=== PATIENT | female | born 1985 | race African-American/Black ===

== ENCOUNTER 2019-11-09 06:02 | Inpatient (IN) ==
[2019-11-09] MEDS ORDERED: ONDANSETRON 4 MG/2 ML VIAL IV PRN (06:14)
[2019-11-09] MEDS ORDERED: BUTORPHANOL 2 MG/ML VIAL IV PRN (06:14)
[2019-11-09] MEDS ORDERED: MEPERIDINE 50 MG/1 ML VIAL IV PRN (06:14)
[2019-11-09] MEDS ORDERED: AMPICILLIN INJ 2,000 MG in SODIUM CHLORIDE 0.9% 100 ML IV ONE (06:15)
[2019-11-09] MEDS ORDERED: INFLUENZA VIRUS VACCINE 0.5 ML SYRINGE IM ONE (06:19)
[2019-11-09] MEDS ORDERED: LACTATED RINGERS 1,000 ML IV SCH (06:30)
[2019-11-09] MEDS ORDERED: OXYTOCIN/LR 20 UNIT/1,000 ML BAG IV SCH (06:30)
[2019-11-09 06:52] LABS: Basophils % 0.4 % (0.0-0.8); Eosinophils # 0.1 10*3/uL (0.0-0.87); Eosinophils % 1.6 % (0.00-10.9); Hematocrit 37.1 VOL% (35.7-47.0); Hemoglobin 12.1 GM/DL (12.0-16.0); Immature Granulocytes % 0.3 %; Immature Granulocytes Absolute 0.02 #; Lymphocytes # 2.4 10*3/uL (1.4-4.0); Lymphocytes % 33.2 % (21.3-54.2); Mean Corpuscular HGB Conc 32.6 GM/DL (32-36); Mean Corpuscular Volume 88.8 FL (87-102); Mean Platelet Volume 8.9 FL (9.6-12.0); Monocytes % 8.2 % (1.7-12.7); Neutrophils % 56.3 % (38.7-73.9); Platelet Count 270 T/CUMM (130-400); Red Blood Count 4.18 MC/CUMM (3.8-5.5); Red Cell Distribution Width 15.5 % (9.3-17.3); White Blood Count 7.3 T/CUMM (4-12)
[2019-11-09 06:57] LABS: Albumin 2.7 G/DL (3.4-5.0); Bilirubin,Total 0.5 MG/DL (0.2-1.0); Calcium 9.6 MG/DL (8.5-10.1); Osmolality,Calculated 268.8 MOS/KG (273-304); Total Protein 6.8 G/DL (6.4-8.3)
[2019-11-09] MEDS ORDERED: hydrOXYzine HCL 25 MG/1 ML VIAL IM PRN (07:21)
[2019-11-09] MEDS ORDERED: PROMETHAZINE 25 MG/1 ML VIAL IM ONE (07:21)
[2019-11-09] MEDS ORDERED: diphenhydrAMINE 50 MG/1 ML VIAL IV PRN ×2 (07:21)
[2019-11-09] MEDS ORDERED: FAMOTIDINE 20 MG/2 ML VIAL IV ONE (07:21)
[2019-11-09] MEDS ORDERED: ONDANSETRON 4 MG/2 ML VIAL IV ONE (07:21)
[2019-11-09] MEDS ORDERED: ePHEDrine 50 MG/ML AMP IV PRN (07:21)
[2019-11-09] MEDS ORDERED: CITRIC ACID/SODIUM CITRATE 30 ML UDCUP PO ONE (07:21)
[2019-11-09] MEDS ORDERED: NALOXONE 0.4 MG/ML VIAL IV PRN (07:21)
[2019-11-09] MEDS ORDERED: LACTATED RINGERS 1,000 ML IV ONE (07:21)
[2019-11-09] MEDS ORDERED: fentaNYL 2 MCG/ROPIV 0.2% EPID 100 ML EPIDURAL SCH (07:30)
[2019-11-09 09:40] LABS: Apearance,Urine CLEAR (Clear); Bacteria,Urine Occasional /HPF (Few); Bilirubin,Urine Negative (Negative); Blood, Urine Negative (Negative); Glucose,Urine (UA) Negative (Negative); Ketones,Urine Negative (Negative); Mucus,Urine Occasional /LPF (Occasional); Nitrite,Urine Negative (Negative); Protein,Urine Negative; RBC,Urine 3 /HPF (0-4); Squamous Epithelial Cell,Urine Occasional /HPF (0-10); Urine Color Straw (Yellow); Urine Specific Gravity 1.006 (1.001-1.035); Urine Urobilinogen < 2.0 EU/DL (0.2-1.0); WBC,Urine 1 /HPF (0-6)
[2019-11-09] MEDS ORDERED: OXYTOCIN/LR 20 UNIT/1,000 ML BAG IV ONE ×2 (10:26→15:15)
[2019-11-09] MEDS ORDERED: TRANEXAMIC ACID 1,000 MG/10 ML VIAL ONE (10:26)
[2019-11-09] MEDS ORDERED: miSOPROStoL 200 MCG TABLET ONE (10:26)
[2019-11-09] MEDS ORDERED: METHYLERGONOVINE 0.2 MG/1 ML AMP ONE (10:27)
[2019-11-09] MEDS ORDERED: CARBOPROST TROMETHAMINE 250 MCG/ML AMP IM ONE (10:27)
[2019-11-09] MEDS ORDERED: AMPICILLIN INJ 1,000 MG in SODIUM CHLORIDE 0.9% 100 ML IV SCH (10:30)
[2019-11-09] MEDS ORDERED: RHO(D) IMMUNE GLOBULIN 300 MCG SYRINGE IM ONE (15:15)
[2019-11-09] MEDS ORDERED: oxyCODONE/ACETAMINOPHEN 5-325 MG TABLET PO PRN (15:15)
[2019-11-09] MEDS ORDERED: MEASLES/MUMPS/RUBELLA VACCINE 0.5 ML VIAL SUBCUT ONE (15:15)
[2019-11-09] MEDS ORDERED: BENZOCAINE 20%/MENTHOL 0.5% SPRAY 56 GM CAN TOP PRN (15:15)
[2019-11-09] MEDS ORDERED: DIPH/TET/ACEL PERT BOOSTER VACCINE 0.5 ML VIAL IM ONE (15:15)
[2019-11-09] MEDS ORDERED: WITCH HAZEL PADS 100/JAR TOP PRN (15:15)
[2019-11-09] MEDS ORDERED: ACETAMINOPHEN 325 MG TABLET PO PRN (15:15)
[2019-11-09] MEDS ORDERED: BISACODYL 10 MG SUPP RECTAL PRN (15:15)
[2019-11-09] MEDS ORDERED: LANOLIN 50% CREAM 0.3 OZ TUBE TOP PRN (15:15)
[2019-11-09] MEDS ORDERED: HYDROCORTISONE 2.5% RECTAL CREAM 30 GM TUBE TOP PRN (15:15)
[2019-11-09] MEDS: IBUPROFEN 800 MG TABLET PO PRN ×2 (16:07→22:18)
[2019-11-09] MEDS: oxyCODONE/ACETAMINOPHEN 5-325 MG TABLET PO PRN (19:52)
[2019-11-09] MEDS: DOCUSATE SODIUM 100 MG CAPSULE PO SCH (20:06)
[2019-11-10] MEDS: oxyCODONE/ACETAMINOPHEN 5-325 MG TABLET PO PRN ×3 (03:34→22:47)
[2019-11-10 06:12] LABS: Basophils % 0.4 % (0.0-0.8); Eosinophils # 0.2 10*3/uL (0.0-0.87); Eosinophils % 1.4 % (0.00-10.9); Hematocrit 32.3 VOL% (35.7-47.0); Hemoglobin 10.8 GM/DL (12.0-16.0); Immature Granulocytes % 0.5 %; Immature Granulocytes Absolute 0.05 #; Lymphocytes # 2.4 10*3/uL (1.4-4.0); Mean Corpuscular HGB Conc 33.4 GM/DL (32-36); Mean Corpuscular Volume 87.8 FL (87-102); Mean Platelet Volume 8.9 FL (9.6-12.0); Monocytes % 6.4 % (1.7-12.7); Neutrophils % 69.3 % (38.7-73.9); Platelet Count 218 T/CUMM (130-400); Red Blood Count 3.68 MC/CUMM (3.8-5.5); Red Cell Distribution Width 15.2 % (9.3-17.3); White Blood Count 10.8 T/CUMM (4-12)
[2019-11-10] MEDS: IBUPROFEN 800 MG TABLET PO PRN ×3 (07:03→22:46)
[2019-11-10] MEDS: DOCUSATE SODIUM 100 MG CAPSULE PO SCH ×2 (08:44→20:32)
[2019-11-11 08:40] VITALS: BP 124/81
[2019-11-11] MEDS ORDERED: INFLUENZA VIRUS VACCINE 0.5 ML SYRINGE IM ONE ×3 (09:00→11:00)
[2019-11-11] MEDS: DOCUSATE SODIUM 100 MG CAPSULE PO SCH (09:31)
[2019-11-11] MEDS: oxyCODONE/ACETAMINOPHEN 5-325 MG TABLET PO PRN (10:20)
[2019-11-11 10:32] LABS: Apearance,Urine CLEAR (Clear); Bilirubin,Urine Negative (Negative); Blood, Urine Large mg/dL (Negative); Glucose,Urine (UA) Negative (Negative); Ketones,Urine Negative (Negative); Nitrite,Urine Negative (Negative); Protein,Urine Negative; RBC,Urine 100 /HPF (0-4); Squamous Epithelial Cell,Urine Occasional /HPF (0-10); Urine Color Straw (Yellow); Urine Specific Gravity 1.004 (1.001-1.035); Urine Urobilinogen < 2.0 EU/DL (0.2-1.0); WBC,Urine 3 /HPF (0-6)
== END 2019-11-11 14:25 | disposition home or self-care (01) | DRG 560 ==
LOC: N.LDOUT 06:02 → N.LD 06:07 → N.OB 15:00
PROVIDERS: ADMIT Obstetrics & Gynecology; ATTEND Obstetrics & Gynecology